=== PATIENT | female | born 1970 | race Caucasian/White ===

== ENCOUNTER 2021-01-19 13:02 | Emergency (ER) | payer OTHER ==
[~2021-01-19] VITALS: Ht 165.1 cm; Wt 59.0 kg
[~2021-01-19 13:02] MED LIST: DOXYCYCLINE 10100 MG PO; FLEXERIL PO; HYDROCODONE-AP1 EAC6 PO; IBUPROFEN 800800 MG PO; MEDROL DOSPAK21 TA1 PO; NOHOMEMEDICATIONS; TRAMADOL 50 MG50 MG PO; ULTRAM 50MG TAB50 MG PO; XANAX 1 MG TABLE1 MG PO
[2021-01-19 14:16] LABS: ABSOLUTE LYMPHOCYTES 1.9 thou/uL (0.8-5.3); ABSOLUTE MONOCYTES 0.5 thou/uL (0.0-1.2); ABSOLUTE NEUTROPHILS 2.6 thou/uL (1.6-8.1); BASOPHILS 0.7 %; HEMATOCRIT 40.5 % (37.0-47.0); HEMOGLOBIN 13.8 gm/dL (12.0-15.0); MCH 30.8 pg (26.0-34.0); MCV 90.6 fL (80.0-100.0); MONOCYTES 10.4 %; MPV 7.9 fl. (7.2-11.1); NUCLEATED RBCS 0 /100WBC; PLATELET COUNT* 242 thou/uL (150-400); POLYS 50.9 %; RBC 4.47 mil/uL (4.20-5.00); RDW-CV 12.5 % (10.5-14.5)
[2021-01-19 14:25] LABS: CALCIUM 8.1 mg/dL (8.5-10.1); CREATININE 0.9 mg/dL (0.6-1.3); POTASSIUM 4.1 mmol/L (3.5-5.1)
[2021-01-19 14:29] LABS: ALBUMIN 4.1 g/dL (3.4-5.0); MAGNESIUM 1.8 mg/dL (1.8-2.4); TOTAL BILIRUBIN 0.3 mg/dL (<0.1-1.0); TOTAL PROTEIN 7.8 g/dL (6.4-8.2)
[2021-01-19 15:01] LABS: URINE BILIRUBIN NEGATIVE (Negative); URINE BLOOD NEGATIVE (Negative); URINE CLARITY CLEAR; URINE COLOR YELLOW; URINE GLUCOSE-RANDOM NEGATIVE (Negative); URINE KETONES NEGATIVE (Negative); URINE NITRITE-REFLEX NEGATIVE (Negative); URINE PROTEIN NEGATIVE (Negative); URINE SPECIFIC GRAVITY <= 1.005 (1.005-1.030); URINE UROBILINOGEN 0.2 E.U./dl (0.2-1.0)
[2021-01-19 15:03] LABS: URINE LEUKOCYTES-REFLEX 2+ (Negative)
[2021-01-19 15:10] LABS: MUCUS None Seen strn/LPF (None Seen); SQUAMOUS >10 Many /LPF (0-3)
[2021-01-19 15:11] LABS: BACTERIA-REFLEX 1-9 Few /HPF (None Seen); CASTS None Seen /LPF (None Seen); CRYSTALS None Seen /LPF (None Seen)
[2021-01-19 15:12] LABS: URINE WBC-REFLEX 6-15 Few /HPF (0-5)
[2021-01-19 15:13] LABS: URINE RBC None Seen /HPF (0-2)
[2021-01-19] MEDS ORDERED: DOXYCYCLINE 10100 M2 PO (15:27)
[2021-01-19 15:42] VITALS: BP 132/82
--- NOTE | 2021-01-19 16:15 | EKG ---
[place] [address] ELECTROCARDIOGRAM REPORT Name: LA LYNCH Room: [facility]#: [id number] Admission: 01/19/21 Attend Phys: Discharge: 01/19/21 Date of : 72 Date of Service: 01/19/21 1305 Report #: [id number] THIS REPORT FOR: //name// [facility] ED Test Date: 2021-01-19 Test Time: 13:05:50 Pat Name: LA LYNCH Department: Room: Gender: Credit Director: [facility] : 1970 Requested By: Lexa Art Order Number: [id number] MD: Juice Michele Measurements Intervals [place] Rate: 112 P: 75 MS: 201 QRS: 78 QRSD: 102 T: 11 QT: 319 QTc: 436 Interpretive Statements Sinus tachycardia Compared to ECG 04/03/2015 20:56:22 Sinus rhythm no longer present Electronically Signed On 01-19-2021 16:15:00 [employer] by Juice Michele [email or web address] <ELECTRONICALLY SIGNED> By: Juice Michele MD, [facility] 01/19/21 1615 1305 1305 Juice Michele MD, FAC /EPI
== END 2021-01-19 15:42 | disposition home or self-care (01) ==
LOC: M.ERS 13:02
PROVIDERS: Emergency Medicine Emergency Medical Services
DX: R00.2 Palpitations (principal); N39.0 Urinary tract infection, site not specified; N93.8 Other specified abnormal uterine and vaginal bleeding; A59.9 Trichomoniasis, unspecified; G43.909 Migraine, unspecified, not intractable, without status migrainosus; F41.9 Anxiety disorder, unspecified; F17.210 Nicotine dependence, cigarettes, uncomplicated